=== PATIENT | male | born 1950 | race African-American/Black ===

== ENCOUNTER 2017-07-30 16:38 | Inpatient (IN) | payer MEDICARE, MEDICAID ==
[~2017-07-30] VITALS: Ht 172.7 cm; Wt 91.2 kg
[~2017-07-30 16:38] MED LIST: AMLO5TAB88 PO; COR3 PO; FURO20TA4 PO; LISI2.5T47 PO
[2017-07-30] MEDS ORDERED: ONDANSETRON HCL 4MG/2ML VIAL IV STA (17:54)
[2017-07-30] MEDS ORDERED: MORPHINE SULFATE 4 MG/ML CPJ (NOT FOR IM USE) IV STA (17:54)
[2017-07-30] MEDS ORDERED: SODIUM CHLORIDE 0.9% 1,000 ML IV ONE (17:54)
[2017-07-30 19:02] LABS: HEMATOCRIT. 44.2 % (42.0-52.0); HEMOGLOBIN. 13.7 g/dL (14.0-18.0); MEAN CORPUSCULAR HEMOGLOBIN 26.3 pg (28.0-32.0); MEAN PLATELET VOLUME 9.9 fl (7.4-10.4); PLATELET 171 x1000/uL (130-400); RED CELL DISTRIBUTION WIDTH 18.1 % (11.6-14.6)
[2017-07-30 19:09] LABS: AMMONIA 83 uMol/L (<32); INR 3.9; PROTHROMBIN TIME 40.9 sec (9.4-11.6)
[2017-07-30 19:10] LABS: CHLORIDE 102 mEq/L (98-107); ETHANOL BLOOD < 10 mg/dL
[2017-07-30 19:29] LABS: TROPONIN I 0.46 ng/mL (0.00-0.04)
[2017-07-30] MEDS ORDERED: ALBUTEROL (0.083%) 2.5MG/3ML NEB HHN ONE (19:45)
[2017-07-30] MEDS ORDERED: DEXTROSE 50% WATER 50ML SYRINGE IV ONE ×4 (19:45→21:15)
[2017-07-30] MEDS ORDERED: SODIUM BICARBONATE 8.4% 1 MEQ/ML 50ML SYR IV ONE (19:45)
[2017-07-30] MEDS ORDERED: SODIUM POLYSTYRENE SULFONATE 15 G/60 ML BOT PO ONE (19:45)
[2017-07-30] MEDS ORDERED: LACTULOSE 20G/30ML UDC PO ONE (19:45)
[2017-07-30] MEDS ORDERED: CALCIUM GLUCONATE 1,000 MG in DEXTROSE 5% WATER 50 ML IV ONE (20:00)
[2017-07-30] MEDS ORDERED: DEXTROSE 10% WATER 250 ML IV ONE (20:15)
[2017-07-30 20:23] LABS: ATYPICAL LYMPHOCYTES 1
[2017-07-30 20:24] LABS: PLATELET ESTIMATE NORMAL
[2017-07-30 20:27] LABS: CLARITY URINE TURBID (CLEAR); COLOR URINE DARK YELLOW (YELLOW); KETONES URINE NEGATIVE (NEGATIVE); LEUKOCYTE ESTERASE URINE TRACE (NEGATIVE); NITRITE URINE NEGATIVE (NEGATIVE); OCCULT BLOOD URINE 3+ (NEGATIVE); PROTEIN URINE 2+ (NEGATIVE); SPECIFIC GRAVITY URINE 1.019 (1.005-1.030)
[2017-07-30] MEDS ORDERED: CLONIDINE 0.1MG TABLET PO PRN (20:30)
[2017-07-30] MEDS ORDERED: PHYTONADIONE 10MG/ML AMP SUBCUT NR (20:30)
[2017-07-30] MEDS ORDERED: MAGNESIUM/ALUMINUM HYDROXIDE/SIMETHICONE 30ML UDC PO PRN (20:30)
[2017-07-30] MEDS ORDERED: ONDANSETRON HCL 4MG/2ML VIAL IV PRN (20:30)
[2017-07-30] MEDS ORDERED: IPRATROPIUM/ALBUTEROL 0.5-3(2.5)MG/3ML NEB INH PRN (20:30)
[2017-07-30 21:01] LABS: PHOSPHORUS 8.7 mg/dL (2.5-4.9)
[2017-07-30 23:10] LABS: CREATINE KINASE MB FRACTION 43.3 ng/mL (0.5-3.6)
[2017-07-30 23:12] LABS: TROPONIN I 0.51 ng/mL (0.00-0.04)
[2017-07-31] VITALS (78 sets, daily range): BP systolic 100–167; BP diastolic 16–115
[2017-07-31 01:45] LABS: BG BASE EXCESS -14.7 mmol/L (-2.0-2.0); BG CARBOXYHEMOGLOBIN 0.2 % (0.5-1.5); BG DEOXYHEMOGLOBIN 0.3 % (0.0-5.0); BG FRACTION INSPIRED OXYGEN 100; BG HCO3 ACT 9.3 mmol/L (22.0-26.0); BG METHEMOGLOBIN 0.7 % (0.0-1.5); BG OXYGEN SATURATION 99.7 % (92.0-98.5); BG OXYHEMOGLOBIN 98.8 % (94.0-97.0); BG PCO2 19.2 mmHg (35.0-45.0); BG PH 7.303 (7.350-7.450); BG PO2 399.8 mmHg (75.0-100.0); BG SAMPLE SITE RIGHT RADIAL; BG TOTAL HEMOGLOBIN 13.4 g/dL (12.0-18.0); BG VENT MODE MASK - NRB
[2017-07-31] MEDS ORDERED: FUROSEMIDE 40MG/4ML VIAL IVP NR (03:30)
[2017-07-31 04:45] LABS: HEMOGLOBIN. 13.1 g/dL (14.0-18.0); MEAN CORPUSCULAR HEMOGLOBIN 26.3 pg (28.0-32.0); MEAN CORPUSCULAR VOLUME 85.9 fL (80.0-94.0); MEAN PLATELET VOLUME 10.1 fl (7.4-10.4); PLATELET 171 x1000/uL (130-400); RED CELL DISTRIBUTION WIDTH 18.2 % (11.6-14.6)
[2017-07-31 05:03] LABS: CHLORIDE 100 mEq/L (98-107); CREATINE KINASE MB FRACTION 56.5 ng/mL (0.5-3.6); HDL CHOLESTEROL 32 mg/dL (40-59); INR 3.4; LDL CHOLESTEROL 99 mg/dL (5-100); PARTIAL THROMBOPLASTIN TIME 32.9 sec (23.4-31.0); PROTHROMBIN TIME 35.5 sec (9.4-11.6)
[2017-07-31 05:21] LABS: CREATINE KINASE 2281 IU/L (39-308)
[2017-07-31 06:06] LABS: TROPONIN I 0.71 ng/mL (0.00-0.04)
[2017-07-31 06:09] LABS: BG BASE EXCESS -14.8 mmol/L (-2.0-2.0); BG CARBOXYHEMOGLOBIN 0.3 % (0.5-1.5); BG DEOXYHEMOGLOBIN 3.7 % (0.0-5.0); BG HCO3 ACT 9.9 mmol/L (22.0-26.0); BG METHEMOGLOBIN 0.2 % (0.0-1.5); BG OXYGEN SATURATION 96.3 % (92.0-98.5); BG OXYHEMOGLOBIN 95.8 % (94.0-97.0); BG PCO2 21.5 mmHg (35.0-45.0); BG PH 7.279 (7.350-7.450); BG PO2 95.8 mmHg (75.0-100.0); BG SAMPLE SITE LEFT BRACHIAL; BG TOTAL HEMOGLOBIN 13.3 g/dL (12.0-18.0); BG VENT MODE NASAL CANNULA
[2017-07-31] MEDS ORDERED: DEXTROSE 50% WATER 50ML SYRINGE IV NR ×2 (06:48→10:03)
[2017-07-31 06:51] LABS: NUCLEATED RED BLOOD CELLS 2 /100 WBC
[2017-07-31 06:52] LABS: PLATELET ESTIMATE NORMAL
[2017-07-31] MEDS ORDERED: CALCIUM CHLORIDE IV NR (07:00)
[2017-07-31] MEDS ORDERED: CALCIUM CHLORIDE 2,000 MG in DEXT 5% WATER 80 ML IV NR (07:00)
[2017-07-31] MEDS ORDERED: SODIUM CHLORIDE 0.9% IV NR (07:00)
[2017-07-31] MEDS ORDERED: SODIUM BICARBONATE 8.4% 1 MEQ/ML 50ML SYR IV NR (07:00)
[2017-07-31] MEDS ORDERED: IPRATROPIUM/ALBUTEROL 0.5-3(2.5)MG/3ML NEB HHN SCH (08:00)
[2017-07-31] MEDS ORDERED: PHYTONADIONE 10MG/ML AMP SUBCUT NR (08:45)
[2017-07-31 09:16] LABS: BG BASE EXCESS -12.3 mmol/L (-2.0-2.0); BG BILEVEL POS AIRWAY PRESSURE 15/5; BG CARBOXYHEMOGLOBIN 0.3 % (0.5-1.5); BG DEOXYHEMOGLOBIN 0.8 % (0.0-5.0); BG HCO3 ACT 11.8 mmol/L (22.0-26.0); BG METHEMOGLOBIN 0.5 % (0.0-1.5); BG OXYGEN SATURATION 99.2 % (92.0-98.5); BG OXYHEMOGLOBIN 98.4 % (94.0-97.0); BG PCO2 23.3 mmHg (35.0-45.0); BG PH 7.322 (7.350-7.450); BG PO2 169.2 mmHg (75.0-100.0); BG SAMPLE SITE RIGHT RADIAL; BG TOTAL HEMOGLOBIN 13.5 g/dL (12.0-18.0); BG VENT MODE MASK - BIPAP; BG VENT RATE 14 set
[2017-07-31] MEDS: LACTULOSE 20G/30ML UDC PO SCH ×2 (09:46→18:00)
[2017-07-31] MEDS ORDERED: LORAZEPAM 2MG/ML CPJ IV NR (10:17)
[2017-07-31 10:59] LABS: *AMPHETAMINES SCREEN URINE NEGATIVE (NEGATIVE); *BARBITURATES SCREEN URINE NEGATIVE (NEGATIVE); *BENZODIAZEPINES SCREEN URINE NEGATIVE (NEGATIVE); *COCAINE SCREEN URINE PRESUMTIVE POSITIVE (NEGATIVE); CANNABINOID URINE SCREEN NEGATIVE (NEGATIVE); METHADONE URINE SCREEN NEGATIVE (NEGATIVE); OPIATES URINE SCREEN NEGATIVE (NEGATIVE); PHENCYCLIDINE URINE SCREEN NEGATIVE (NEGATIVE)
[2017-07-31] MEDS ORDERED: DEXTROSE 50% WATER 50ML SYRINGE IV PRN (11:00)
[2017-07-31] MEDS: PANTOPRAZOLE SODIUM 40 MG/VIAL IV SCH (11:03)
[2017-07-31] MEDS: BLOOD SUGAR DIAGNOSTIC STRIP TEST SCH ×3 (12:40→20:45)
[2017-07-31] MEDS: SODIUM CHLORIDE IV SCH (13:56)
[2017-07-31] MEDS: DEXTROSE 10% IV SCH (13:56)
[2017-07-31] MEDS: WATER IV SCH (13:56)
[2017-07-31] MEDS: IPRATROPIUM/ALBUTEROL 0.5-3(2.5)MG/3ML NEB HHN SCH ×2 (14:39→20:42)
[2017-07-31] MEDS ORDERED: HEPARIN SODIUM 1,000 UNIT/1ML VIAL IV NR (15:30)
[2017-07-31 17:30] LABS: BG BASE EXCESS -0.6 mmol/L (-2.0-2.0); BG BILEVEL POS AIRWAY PRESSURE 15/5; BG CARBOXYHEMOGLOBIN 0.6 % (0.5-1.5); BG DEOXYHEMOGLOBIN 4.1 % (0.0-5.0); BG METHEMOGLOBIN 0.7 % (0.0-1.5); BG OXYGEN SATURATION 95.8 % (92.0-98.5); BG OXYHEMOGLOBIN 94.6 % (94.0-97.0); BG PCO2 30.2 mmHg (35.0-45.0); BG PO2 78.8 mmHg (75.0-100.0); BG SAMPLE SITE RIGHT RADIAL; BG TOTAL HEMOGLOBIN 12.4 g/dL (12.0-18.0); BG VENT MODE MASK - BIPAP; BG VENT RATE 16 set
[2017-07-31] MEDS: CEFTRIAXONE 1,000 MG in DEXTROSE 5% WATER 50 ML IV SCH (20:05)
[2017-07-31] MEDS: CARVEDILOL 3.125 MG TABLET PO SCH (20:06)
[2017-07-31] MEDS: LACTULOSE 20G/30ML UDC PR SCH (22:56)
[2017-08-01] VITALS (88 sets, daily range): BP systolic 91–150; BP diastolic 22–116
[2017-08-01] MEDS: BLOOD SUGAR DIAGNOSTIC STRIP TEST SCH ×6 (00:55→20:52)
[2017-08-01] MEDS: LACTULOSE 20G/30ML UDC PO SCH ×3 (01:48→17:32)
[2017-08-01] MEDS: IPRATROPIUM/ALBUTEROL 0.5-3(2.5)MG/3ML NEB HHN SCH ×4 (02:05→20:22)
[2017-08-01 04:14] LABS: HEMATOCRIT. 35.8 % (42.0-52.0); HEMOGLOBIN. 11.6 g/dL (14.0-18.0); MEAN CORPUSCULAR HEMOGLOBIN 26.6 pg (28.0-32.0); MEAN CORPUSCULAR VOLUME 81.8 fL (80.0-94.0); MEAN PLATELET VOLUME 9.6 fl (7.4-10.4); PLATELET 126 x1000/uL (130-400); RED BLOOD CELL COUNT 4.37 mill/uL (4.7-6.1); RED CELL DISTRIBUTION WIDTH 17.7 % (11.6-14.6)
[2017-08-01 04:25] LABS: AMMONIA 46 uMol/L (<32); PROTHROMBIN TIME 31.3 sec (9.4-11.6)
[2017-08-01] MEDS: LACTULOSE 20G/30ML UDC PR SCH (06:12)
[2017-08-01 07:14] LABS: NUCLEATED RED BLOOD CELLS 2 /100 WBC; PLATELET ESTIMATE SLIGHTLY DECREASED
[2017-08-01 07:14] LABS: BG BASE EXCESS 1.3 mmol/L (-2.0-2.0); BG BILEVEL POS AIRWAY PRESSURE 15/5; BG CARBOXYHEMOGLOBIN 0.5 % (0.5-1.5); BG DEOXYHEMOGLOBIN 0.9 % (0.0-5.0); BG HCO3 ACT 25.7 mmol/L (22.0-26.0); BG METHEMOGLOBIN 0.2 % (0.0-1.5); BG OXYGEN SATURATION 99.1 % (92.0-98.5); BG OXYHEMOGLOBIN 98.4 % (94.0-97.0); BG PCO2 40.2 mmHg (35.0-45.0); BG PH 7.424 (7.350-7.450); BG PO2 166.6 mmHg (75.0-100.0); BG SAMPLE SITE RIGHT RADIAL; BG VENT MODE MASK - BIPAP; BG VENT RATE 16 set
[2017-08-01] MEDS: WATER IV SCH (08:32)
[2017-08-01] MEDS: SODIUM CHLORIDE IV SCH (08:32)
[2017-08-01] MEDS: PANTOPRAZOLE SODIUM 40 MG/VIAL IV SCH (08:32)
[2017-08-01] MEDS: DEXTROSE 10% IV SCH (08:32)
[2017-08-01] MEDS: CARVEDILOL 3.125 MG TABLET PO SCH ×2 (09:00→20:56)
[2017-08-01 10:08] LABS: PHOSPHORUS 4.9 mg/dL (2.5-4.9)
[2017-08-01 12:15] LABS: HEPATITIS B SURFACE ANTIGEN NEGATIVE
[2017-08-01] MEDS: SODIUM CHLORIDE 23.4% 154 MEQ in DEXT 10% WATER 1,000 ML IV SCH (20:56)
[2017-08-01] MEDS: CEFTRIAXONE 1,000 MG in DEXTROSE 5% WATER 50 ML IV SCH (20:56)
[2017-08-02] VITALS (69 sets, daily range): BP systolic 42–152; BP diastolic 18–100
[2017-08-02] MEDS: BLOOD SUGAR DIAGNOSTIC STRIP TEST SCH ×6 (00:10→20:00)
[2017-08-02] MEDS: IPRATROPIUM/ALBUTEROL 0.5-3(2.5)MG/3ML NEB HHN SCH ×5 (01:26→20:42)
[2017-08-02] MEDS: LACTULOSE 20G/30ML UDC PO SCH ×3 (01:44→18:40)
[2017-08-02 05:29] LABS: HEMATOCRIT. 39.3 % (42.0-52.0); HEMOGLOBIN. 12.3 g/dL (14.0-18.0); MEAN CORPUSCULAR VOLUME 82.9 fL (80.0-94.0); MEAN PLATELET VOLUME 10.1 fl (7.4-10.4); PLATELET 115 x1000/uL (130-400); RED BLOOD CELL COUNT 4.75 mill/uL (4.7-6.1); RED CELL DISTRIBUTION WIDTH 17.9 % (11.6-14.6)
[2017-08-02 05:34] LABS: INR 2.3
[2017-08-02 05:47] LABS: AMMONIA 44 uMol/L (<32)
[2017-08-02 07:03] LABS: NUCLEATED RED BLOOD CELLS 2 /100 WBC; PLATELET ESTIMATE DECREASED
[2017-08-02] MEDS ORDERED: PHYTONADIONE 10MG/ML AMP SUBCUT NR (07:45)
[2017-08-02 08:21] LABS: BG BASE EXCESS 1.1 mmol/L (-2.0-2.0); BG DEOXYHEMOGLOBIN 4.9 % (0.0-5.0); BG FRACTION INSPIRED OXYGEN 21; BG HCO3 ACT 22.6 mmol/L (22.0-26.0); BG METHEMOGLOBIN 0.2 % (0.0-1.5); BG OXYHEMOGLOBIN 93.9 % (94.0-97.0); BG PCO2 27.4 mmHg (35.0-45.0); BG PH 7.534 (7.350-7.450); BG PO2 67.7 mmHg (75.0-100.0); BG SAMPLE SITE RIGHT RADIAL; BG TOTAL HEMOGLOBIN 13.1 g/dL (12.0-18.0); BG VENT MODE ROOM AIR
[2017-08-02] MEDS: PANTOPRAZOLE SODIUM 40 MG/VIAL IV SCH (08:53)
[2017-08-02] MEDS: CARVEDILOL 3.125 MG TABLET PO SCH ×2 (08:53→21:00)
[2017-08-02] MEDS: HALOPERIDOL LACTATE 5MG/ML VIAL IM PRN ×2 (11:29→15:56)
[2017-08-02] MEDS: CEFTRIAXONE 1 G PREMIX 50 ML IV SCH (20:54)
[2017-08-02 23:27] LABS: INR 1.8; PARTIAL THROMBOPLASTIN TIME 30.7 sec (23.4-31.0); PROTHROMBIN TIME 18.7 sec (9.4-11.6)
[2017-08-03] VITALS (47 sets, daily range): BP systolic 93–136; BP diastolic 61–103
[2017-08-03] MEDS: LACTULOSE 20G/30ML UDC PO SCH ×3 (02:00→17:46)
[2017-08-03] MEDS: IPRATROPIUM/ALBUTEROL 0.5-3(2.5)MG/3ML NEB HHN SCH ×4 (03:43→20:04)
[2017-08-03] MEDS: BLOOD SUGAR DIAGNOSTIC STRIP TEST SCH ×6 (04:11→20:58)
[2017-08-03] MEDS: HALOPERIDOL LACTATE 5MG/ML VIAL IM PRN ×3 (06:03→23:30)
[2017-08-03] MEDS: SODIUM CHLORIDE 23.4% 154 MEQ in DEXT 10% WATER 1,000 ML IV SCH (06:04)
[2017-08-03] MEDS: PANTOPRAZOLE SODIUM 40 MG/VIAL IV SCH (08:55)
[2017-08-03] MEDS: CARVEDILOL 3.125 MG TABLET PO SCH (08:55)
[2017-08-03 09:33] LABS: HEMATOCRIT. 39.7 % (42.0-52.0); HEMOGLOBIN. 12.6 g/dL (14.0-18.0); MEAN CORPUSCULAR HEMOGLOBIN 26.1 pg (28.0-32.0); MEAN CORPUSCULAR VOLUME 82.3 fL (80.0-94.0); MEAN PLATELET VOLUME 10.3 fl (7.4-10.4); PLATELET 106 x1000/uL (130-400); RED BLOOD CELL COUNT 4.82 mill/uL (4.7-6.1); RED CELL DISTRIBUTION WIDTH 18.1 % (11.6-14.6)
[2017-08-03] MEDS ORDERED: SODIUM BICARBONATE 4% (2.4MEQ) 5ML VIAL IV ONE (09:38)
[2017-08-03] MEDS ORDERED: LIDOCAINE HCL 1% 20ML VIAL (Pyxis) INJ ONE (09:39)
[2017-08-03 09:51] LABS: CHLORIDE 108 mEq/L (98-107)
[2017-08-03 10:25] LABS: NUCLEATED RED BLOOD CELLS 1 /100 WBC
[2017-08-03 10:26] LABS: PLATELET ESTIMATE SLIGHTLY DECREASED
[2017-08-03 19:54] LABS: BG CARBOXYHEMOGLOBIN 0.9 % (0.5-1.5); BG DEOXYHEMOGLOBIN 0.3 % (0.0-5.0); BG FRACTION INSPIRED OXYGEN 100; BG METHEMOGLOBIN 0.4 % (0.0-1.5); BG OXYGEN SATURATION 99.7 % (92.0-98.5); BG OXYHEMOGLOBIN 98.4 % (94.0-97.0); BG PCO2 39.3 mmHg (35.0-45.0); BG PH 7.455 (7.350-7.450); BG PO2 423.5 mmHg (75.0-100.0); BG SAMPLE SITE RIGHT RADIAL; BG TOTAL HEMOGLOBIN 13.4 g/dL (12.0-18.0); BG VENT MODE MASK - NRB
[2017-08-03] MEDS: CARVEDILOL 6.25 MG TABLET PO SCH (21:00)
[2017-08-03] MEDS: CEFTRIAXONE 1 G PREMIX 50 ML IV SCH (21:00)
[2017-08-04] VITALS (48 sets, daily range): BP systolic 68–152; BP diastolic 24–93
[2017-08-04] MEDS: LACTULOSE 20G/30ML UDC PO SCH ×3 (02:00→18:21)
[2017-08-04] MEDS: BLOOD SUGAR DIAGNOSTIC STRIP TEST SCH ×6 (04:00→20:46)
[2017-08-04 05:46] LABS: HEMATOCRIT. 42.8 % (42.0-52.0); HEMOGLOBIN. 13.6 g/dL (14.0-18.0); MEAN CORPUSCULAR HEMOGLOBIN 26.4 pg (28.0-32.0); MEAN CORPUSCULAR VOLUME 83.1 fL (80.0-94.0); MEAN PLATELET VOLUME 10.8 fl (7.4-10.4); PLATELET 111 x1000/uL (130-400); RED BLOOD CELL COUNT 5.15 mill/uL (4.7-6.1); RED CELL DISTRIBUTION WIDTH 18.6 % (11.6-14.6)
[2017-08-04 06:15] LABS: CHLORIDE 110 mEq/L (98-107)
[2017-08-04 06:27] LABS: CREATINE KINASE 1083 IU/L (39-308)
[2017-08-04 06:41] LABS: AMMONIA 47 uMol/L (<32)
[2017-08-04] MEDS ORDERED: SODIUM POLYSTYRENE SULFONATE 15 G/60 ML BOT PO SCH (07:15)
[2017-08-04 07:28] LABS: NUCLEATED RED BLOOD CELLS 2 /100 WBC; PLATELET ESTIMATE DECREASED
[2017-08-04] MEDS: IPRATROPIUM/ALBUTEROL 0.5-3(2.5)MG/3ML NEB HHN SCH ×3 (07:54→19:58)
[2017-08-04] MEDS: PANTOPRAZOLE SODIUM 40 MG/VIAL IV SCH (08:18)
[2017-08-04] MEDS: CARVEDILOL 6.25 MG TABLET PO SCH ×2 (08:19→20:46)
[2017-08-04] MEDS: CEFTRIAXONE 1 G PREMIX 50 ML IV SCH (20:00)
[2017-08-04] MEDS: SODIUM CHLORIDE 23.4% 154 MEQ in DEXT 10% WATER 1,000 ML IV SCH (20:46)
[2017-08-05] VITALS (32 sets, daily range): BP systolic 98–151; BP diastolic 19–89
[2017-08-05] MEDS: BLOOD SUGAR DIAGNOSTIC STRIP TEST SCH ×4 (00:02→18:22)
[2017-08-05] MEDS: HALOPERIDOL LACTATE 5MG/ML VIAL IM PRN (00:02)
[2017-08-05] MEDS: IPRATROPIUM/ALBUTEROL 0.5-3(2.5)MG/3ML NEB HHN SCH ×4 (01:38→21:14)
[2017-08-05] MEDS: LACTULOSE 20G/30ML UDC PO SCH ×3 (02:00→18:00)
[2017-08-05 05:40] LABS: HEMATOCRIT. 38.9 % (42.0-52.0); HEMOGLOBIN. 12.3 g/dL (14.0-18.0); MEAN CORPUSCULAR HEMOGLOBIN 26.1 pg (28.0-32.0); MEAN CORPUSCULAR VOLUME 82.8 fL (80.0-94.0); MEAN PLATELET VOLUME 10.3 fl (7.4-10.4); PLATELET 99 x1000/uL (130-400); RED CELL DISTRIBUTION WIDTH 18.8 % (11.6-14.6)
[2017-08-05 05:47] LABS: AMMONIA 43 uMol/L (<32)
[2017-08-05 06:03] LABS: CHLORIDE 107 mEq/L (98-107)
[2017-08-05 06:11] LABS: CREATINE KINASE 356 IU/L (39-308); PHOSPHORUS 2.2 mg/dL (2.5-4.9)
[2017-08-05 06:46] LABS: PLATELET ESTIMATE DECREASED
[2017-08-05] MEDS: CARVEDILOL 6.25 MG TABLET PO SCH ×2 (08:38→21:00)
[2017-08-05] MEDS: PANTOPRAZOLE SODIUM 40 MG/VIAL IV SCH (09:00)
[2017-08-05] MEDS: CEFTRIAXONE 1 G PREMIX 50 ML IV SCH (21:13)
[2017-08-06] VITALS (12 sets, daily range): BP systolic 91–119; BP diastolic 62–90
[2017-08-06] MEDS: LACTULOSE 20G/30ML UDC PO SCH ×3 (01:47→18:36)
[2017-08-06] MEDS: IPRATROPIUM/ALBUTEROL 0.5-3(2.5)MG/3ML NEB HHN SCH ×4 (02:38→21:59)
[2017-08-06] MEDS: BLOOD SUGAR DIAGNOSTIC STRIP TEST SCH ×5 (05:07→23:52)
[2017-08-06 05:38] LABS: AMMONIA 57 uMol/L (<32)
[2017-08-06 06:04] LABS: HEMATOCRIT. 38.5 % (42.0-52.0); HEMOGLOBIN. 12.3 g/dL (14.0-18.0); MEAN CORPUSCULAR HEMOGLOBIN 26.4 pg (28.0-32.0); MEAN CORPUSCULAR VOLUME 82.7 fL (80.0-94.0); MEAN PLATELET VOLUME 10.8 fl (7.4-10.4); PLATELET 93 x1000/uL (130-400); RED BLOOD CELL COUNT 4.66 mill/uL (4.7-6.1); RED CELL DISTRIBUTION WIDTH 18.5 % (11.6-14.6)
[2017-08-06 08:28] LABS: CHLORIDE 104 mEq/L (98-107); CREATINE KINASE 249 IU/L (39-308)
[2017-08-06 08:29] LABS: PHOSPHORUS 2.1 mg/dL (2.5-4.9)
[2017-08-06] MEDS: PANTOPRAZOLE SODIUM 40 MG/VIAL IV SCH (09:39)
[2017-08-06] MEDS: CARVEDILOL 6.25 MG TABLET PO SCH ×2 (09:40→21:27)
[2017-08-06] MEDS ORDERED: POTASSIUM PHOS,M-BASIC-D-BASIC 15 MMOL in DEXT 5% WATER 245 ML IV NR (10:00)
[2017-08-06 10:29] LABS: PLATELET ESTIMATE DECREASED
[2017-08-06] MEDS ORDERED: LISINOPRIL 2.5MG TABLET PO SCH (15:00)
[2017-08-06] MEDS: CEFTRIAXONE 1 G PREMIX 50 ML IV SCH (21:27)
[2017-08-07] VITALS (12 sets, daily range): BP systolic 89–145; BP diastolic 58–99
[2017-08-07] MEDS: IPRATROPIUM/ALBUTEROL 0.5-3(2.5)MG/3ML NEB HHN SCH ×4 (01:50→20:19)
[2017-08-07] MEDS: LACTULOSE 20G/30ML UDC PO SCH ×3 (02:31→18:45)
[2017-08-07] MEDS: BLOOD SUGAR DIAGNOSTIC STRIP TEST SCH ×3 (06:00→18:45)
[2017-08-07 06:32] LABS: HEMATOCRIT. 39.4 % (42.0-52.0); HEMOGLOBIN. 12.5 g/dL (14.0-18.0); MEAN CORPUSCULAR HEMOGLOBIN 26.3 pg (28.0-32.0); MEAN CORPUSCULAR VOLUME 82.9 fL (80.0-94.0); RED BLOOD CELL COUNT 4.76 mill/uL (4.7-6.1); RED CELL DISTRIBUTION WIDTH 19.4 % (11.6-14.6)
[2017-08-07 07:22] LABS: AMMONIA 88 uMol/L (<32)
[2017-08-07 07:56] LABS: CHLORIDE 100 mEq/L (98-107); PHOSPHORUS 2.4 mg/dL (2.5-4.9)
[2017-08-07] MEDS ORDERED: DEXTROSE 50% WATER 50ML SYRINGE IV NR (08:11)
[2017-08-07] MEDS ORDERED: INSULIN REGULAR (HUMULIN R) UD 100 UNITS/ML SYR IV NR (08:15)
[2017-08-07] MEDS ORDERED: SODIUM POLYSTYRENE SULFONATE 15 G/60 ML BOT PO NR (08:15)
[2017-08-07] MEDS ORDERED: SODIUM BICARBONATE 8.4% 1 MEQ/ML 50ML SYR IV NR (08:15)
[2017-08-07] MEDS: CARVEDILOL 6.25 MG TABLET PO SCH ×2 (09:00→21:00)
[2017-08-07] MEDS: PANTOPRAZOLE SODIUM 40 MG/VIAL IV SCH (09:07)
[2017-08-07] MEDS ORDERED: SODIUM PHOS,M-BASIC-D-BASIC 15 MM in DEXT 5% WATER 245 ML IV NR (10:00)
[2017-08-07 11:12] LABS: PLATELET ESTIMATE DECREASED
[2017-08-07 11:14] LABS: MEAN PLATELET VOLUME 11.3 fl (7.4-10.4); PLATELET 109 x1000/uL (130-400)
[2017-08-07] MEDS ORDERED: POTASSIUM CHLORIDE 20MEQ TABLET SR PO NR (14:15)
[2017-08-07] MEDS: CEFTRIAXONE 1 G PREMIX 50 ML IV SCH (21:23)
[2017-08-08] VITALS (12 sets, daily range): BP systolic 107–139; BP diastolic 59–84
[2017-08-08] MEDS: LACTULOSE 20G/30ML UDC PO SCH ×5 (00:11→23:30)
[2017-08-08] MEDS: BLOOD SUGAR DIAGNOSTIC STRIP TEST SCH ×5 (00:11→23:30)
[2017-08-08] MEDS: IPRATROPIUM/ALBUTEROL 0.5-3(2.5)MG/3ML NEB HHN SCH ×4 (01:24→21:11)
[2017-08-08 06:38] LABS: HEMATOCRIT. 38.5 % (42.0-52.0); HEMOGLOBIN. 12.4 g/dL (14.0-18.0); MEAN CORPUSCULAR HEMOGLOBIN 26.3 pg (28.0-32.0); MEAN CORPUSCULAR VOLUME 81.7 fL (80.0-94.0); RED CELL DISTRIBUTION WIDTH 18.9 % (11.6-14.6)
[2017-08-08 06:44] LABS: CHLORIDE 101 mEq/L (98-107); PHOSPHORUS 1.9 mg/dL (2.5-4.9)
[2017-08-08] MEDS: PANTOPRAZOLE SODIUM 40 MG/VIAL IV SCH (07:59)
[2017-08-08] MEDS: CARVEDILOL 6.25 MG TABLET PO SCH ×2 (08:01→20:38)
[2017-08-08] MEDS ORDERED: SODIUM PHOS,M-BASIC-D-BASIC 15 MM in DEXT 5% WATER 245 ML IV NR (10:00)
[2017-08-08 10:57] LABS: PLATELET ESTIMATE SLIGHTLY DECREASED
[2017-08-08 10:58] LABS: MEAN PLATELET VOLUME 10.6 fl (7.4-10.4); PLATELET 125 x1000/uL (130-400)
[2017-08-08] MEDS ORDERED: DEXTROSE 50% WATER 50ML SYRINGE IV PRN (12:30)
[2017-08-08] MEDS: INSULIN LISPRO 100 UNITS/ML SUBCUT SCH ×3 (13:26→23:36)
[2017-08-09] VITALS (11 sets, daily range): BP systolic 100–138; BP diastolic 59–92
[2017-08-09] MEDS: IPRATROPIUM/ALBUTEROL 0.5-3(2.5)MG/3ML NEB HHN SCH ×4 (00:39→21:31)
[2017-08-09] MEDS: HALOPERIDOL LACTATE 5MG/ML VIAL IM PRN ×2 (01:36→11:16)
[2017-08-09] MEDS: LACTULOSE 20G/30ML UDC PO SCH ×3 (05:54→21:24)
[2017-08-09] MEDS: INSULIN LISPRO 100 UNITS/ML SUBCUT SCH ×4 (06:00→23:46)
[2017-08-09] MEDS: BLOOD SUGAR DIAGNOSTIC STRIP TEST SCH ×4 (06:00→23:34)
[2017-08-09 07:10] LABS: HEMATOCRIT. 37.3 % (42.0-52.0); MEAN CORPUSCULAR HEMOGLOBIN 26.2 pg (28.0-32.0); MEAN CORPUSCULAR VOLUME 81.4 fL (80.0-94.0); MEAN PLATELET VOLUME 10.7 fl (7.4-10.4); PLATELET 137 x1000/uL (130-400); RED BLOOD CELL COUNT 4.58 mill/uL (4.7-6.1); RED CELL DISTRIBUTION WIDTH 18.9 % (11.6-14.6)
[2017-08-09 07:20] LABS: CHLORIDE 100 mEq/L (98-107); PHOSPHORUS 2.5 mg/dL (2.5-4.9)
[2017-08-09] MEDS: PANTOPRAZOLE SODIUM 40 MG/VIAL IV SCH (08:24)
[2017-08-09] MEDS: CARVEDILOL 6.25 MG TABLET PO SCH (08:32)
[2017-08-09 13:22] LABS: PLATELET ESTIMATE NORMAL
[2017-08-09 13:43] LABS: AMMONIA 39 uMol/L (<32)
[2017-08-09] MEDS: CARVEDILOL 12.5MG TABLET PO SCH (21:21)
[2017-08-10] VITALS (10 sets, daily range): BP systolic 107–131; BP diastolic 25–103
[2017-08-10] MEDS: IPRATROPIUM/ALBUTEROL 0.5-3(2.5)MG/3ML NEB HHN SCH ×4 (02:34→21:05)
[2017-08-10] MEDS: INSULIN LISPRO 100 UNITS/ML SUBCUT SCH ×3 (06:00→18:00)
[2017-08-10] MEDS: LACTULOSE 20G/30ML UDC PO SCH ×3 (06:03→21:15)
[2017-08-10] MEDS: BLOOD SUGAR DIAGNOSTIC STRIP TEST SCH ×3 (06:06→18:15)
[2017-08-10] MEDS: CARVEDILOL 12.5MG TABLET PO SCH ×3 (09:00→21:15)
[2017-08-10 12:57] LABS: AMMONIA 32 uMol/L (<32)
[2017-08-10] MEDS: PANTOPRAZOLE SODIUM 40 MG/VIAL IV SCH (13:14)
[2017-08-10 15:05] LABS: INR 1.2; PROTHROMBIN TIME 12.7 sec (9.4-11.6)
[2017-08-11] VITALS (12 sets, daily range): BP systolic 95–129; BP diastolic 47–80
[2017-08-11] MEDS: INSULIN LISPRO 100 UNITS/ML SUBCUT SCH ×5 (00:12→21:12)
[2017-08-11] MEDS: BLOOD SUGAR DIAGNOSTIC STRIP TEST SCH ×5 (00:12→21:12)
[2017-08-11] MEDS: IPRATROPIUM/ALBUTEROL 0.5-3(2.5)MG/3ML NEB HHN SCH ×4 (02:00→20:48)
[2017-08-11] MEDS: LACTULOSE 20G/30ML UDC PO SCH ×3 (06:13→21:52)
[2017-08-11 06:37] LABS: HEMATOCRIT. 35.7 % (42.0-52.0); HEMOGLOBIN. 11.5 g/dL (14.0-18.0); MEAN CORPUSCULAR HEMOGLOBIN 26.1 pg (28.0-32.0); MEAN CORPUSCULAR VOLUME 81.5 fL (80.0-94.0); MEAN PLATELET VOLUME 10.5 fl (7.4-10.4); PLATELET 128 x1000/uL (130-400); RED BLOOD CELL COUNT 4.39 mill/uL (4.7-6.1)
[2017-08-11 06:42] LABS: INR 1.3; PARTIAL THROMBOPLASTIN TIME 27.7 sec (23.4-31.0); PROTHROMBIN TIME 13.1 sec (9.4-11.6)
[2017-08-11 06:59] LABS: CHLORIDE 101 mEq/L (98-107)
[2017-08-11 07:05] LABS: AMMONIA 33 uMol/L (<32)
[2017-08-11] MEDS: PANTOPRAZOLE SODIUM 40 MG/VIAL IV SCH (08:15)
[2017-08-11] MEDS: CARVEDILOL 12.5MG TABLET PO SCH ×2 (08:16→21:11)
[2017-08-11] MEDS ORDERED: SODIUM BICARBONATE 4% (2.4MEQ) 5ML VIAL IV ONE (08:29)
[2017-08-11] MEDS ORDERED: LIDOCAINE HCL 1% 20ML VIAL (Pyxis) INJ ONE (08:30)
[2017-08-11] MEDS: FUROSEMIDE 40MG/4ML VIAL IVP SCH (15:09)
[2017-08-11 17:20] LABS: PLATELET ESTIMATE SLIGHTLY DECREASED
[2017-08-12] VITALS (34 sets, daily range): BP systolic 90–133; BP diastolic 32–92
[2017-08-12] MEDS: IPRATROPIUM/ALBUTEROL 0.5-3(2.5)MG/3ML NEB HHN SCH ×4 (01:23→20:34)
[2017-08-12] MEDS: HALOPERIDOL LACTATE 5MG/ML VIAL IM PRN (01:57)
[2017-08-12] MEDS: LACTULOSE 20G/30ML UDC PO SCH ×3 (05:42→21:40)
[2017-08-12 06:12] LABS: BASOPHILS % 0.8 % (0.0-2.0); EOSINOPHILS % 0.2 % (0.0-5.0); HEMATOCRIT. 37.6 % (42.0-52.0); HEMOGLOBIN. 12.1 g/dL (14.0-18.0); LYMPHOCYTES % 9.6 % (20.0-50.0); MEAN CORPUSCULAR HEMOGLOBIN 26.3 pg (28.0-32.0); MEAN CORPUSCULAR VOLUME 81.9 fL (80.0-94.0); MEAN PLATELET VOLUME 10.6 fl (7.4-10.4); MONOCYTES % 13.6 % (2.0-8.0); NEUTROPHILS % 75.8 % (40.0-76.0); PLATELET 152 x1000/uL (130-400); RED CELL DISTRIBUTION WIDTH 19.5 % (11.6-14.6)
[2017-08-12 06:56] LABS: CHLORIDE 100 mEq/L (98-107)
[2017-08-12] MEDS: INSULIN LISPRO 100 UNITS/ML SUBCUT SCH ×4 (07:30→20:53)
[2017-08-12] MEDS: BLOOD SUGAR DIAGNOSTIC STRIP TEST SCH ×4 (07:44→20:53)
[2017-08-12] MEDS: CARVEDILOL 12.5MG TABLET PO SCH ×2 (09:16→20:53)
[2017-08-12] MEDS: FUROSEMIDE 40MG/4ML VIAL IVP SCH (09:17)
[2017-08-12] MEDS: PANTOPRAZOLE SODIUM 40 MG/VIAL IV SCH (09:17)
[2017-08-12 11:16] LABS: BG BASE EXCESS 0.9 mmol/L (-2.0-2.0); BG CARBOXYHEMOGLOBIN 0.5 % (0.5-1.5); BG DEOXYHEMOGLOBIN 2.9 % (0.0-5.0); BG HCO3 ACT 22.9 mmol/L (22.0-26.0); BG METHEMOGLOBIN 0.2 % (0.0-1.5); BG OXYGEN SATURATION 97.1 % (92.0-98.5); BG OXYHEMOGLOBIN 96.4 % (94.0-97.0); BG PCO2 28.9 mmHg (35.0-45.0); BG PH 7.516 (7.350-7.450); BG PO2 84.5 mmHg (75.0-100.0); BG SAMPLE SITE RIGHT BRACHIAL; BG TOTAL HEMOGLOBIN 12.8 g/dL (12.0-18.0); BG VENT MODE NASAL CANNULA
[2017-08-12 11:50] LABS: AMMONIA < 25 uMol/L (<32)
[2017-08-13] VITALS (12 sets, daily range): BP systolic 93–144; BP diastolic 68–82
[2017-08-13] MEDS: IPRATROPIUM/ALBUTEROL 0.5-3(2.5)MG/3ML NEB HHN SCH ×3 (01:42→21:09)
[2017-08-13 06:03] LABS: HEMATOCRIT. 34.5 % (42.0-52.0); HEMOGLOBIN. 11.1 g/dL (14.0-18.0); MEAN CORPUSCULAR HEMOGLOBIN 26.6 pg (28.0-32.0); MEAN CORPUSCULAR VOLUME 82.8 fL (80.0-94.0); MEAN PLATELET VOLUME 10.4 fl (7.4-10.4); PLATELET 117 x1000/uL (130-400); RED BLOOD CELL COUNT 4.16 mill/uL (4.7-6.1); RED CELL DISTRIBUTION WIDTH 19.4 % (11.6-14.6)
[2017-08-13 06:24] LABS: CHLORIDE 105 mEq/L (98-107)
[2017-08-13] MEDS: LACTULOSE 20G/30ML UDC PO SCH ×2 (06:33→16:21)
[2017-08-13] MEDS: INSULIN LISPRO 100 UNITS/ML SUBCUT SCH ×4 (07:30→20:51)
[2017-08-13] MEDS: BLOOD SUGAR DIAGNOSTIC STRIP TEST SCH ×4 (08:16→20:51)
[2017-08-13] MEDS: FUROSEMIDE 40MG/4ML VIAL IVP SCH (08:43)
[2017-08-13] MEDS: PANTOPRAZOLE SODIUM 40 MG/VIAL IV SCH (08:44)
[2017-08-13] MEDS: CARVEDILOL 12.5MG TABLET PO SCH ×2 (08:44→20:51)
[2017-08-13 13:34] LABS: PLATELET ESTIMATE SLIGHTLY DECREASED
[2017-08-14] VITALS (12 sets, daily range): BP systolic 96–108; BP diastolic 63–81
[2017-08-14] MEDS: IPRATROPIUM/ALBUTEROL 0.5-3(2.5)MG/3ML NEB HHN SCH ×4 (01:39→20:03)
[2017-08-14 06:48] LABS: BASOPHILS % 1.5 % (0.0-2.0); EOSINOPHILS % 0.5 % (0.0-5.0); HEMATOCRIT. 33.5 % (42.0-52.0); LYMPHOCYTES % 12.3 % (20.0-50.0); MEAN CORPUSCULAR HEMOGLOBIN 26.8 pg (28.0-32.0); MEAN CORPUSCULAR VOLUME 81.8 fL (80.0-94.0); MEAN PLATELET VOLUME 9.8 fl (7.4-10.4); MONOCYTES % 14.9 % (2.0-8.0); NEUTROPHILS % 70.8 % (40.0-76.0); PLATELET 129 x1000/uL (130-400); RED CELL DISTRIBUTION WIDTH 19.2 % (11.6-14.6)
[2017-08-14] MEDS: INSULIN LISPRO 100 UNITS/ML SUBCUT SCH ×4 (07:30→21:00)
[2017-08-14] MEDS: BLOOD SUGAR DIAGNOSTIC STRIP TEST SCH ×4 (07:31→20:59)
[2017-08-14 07:49] LABS: CHLORIDE 100 mEq/L (98-107)
[2017-08-14] MEDS: CARVEDILOL 12.5MG TABLET PO SCH ×2 (08:04→20:59)
[2017-08-14] MEDS: LACTULOSE 20G/30ML UDC PO SCH ×2 (09:00→16:08)
[2017-08-14] MEDS: FUROSEMIDE 40MG/4ML VIAL IVP SCH ×2 (09:00→16:09)
[2017-08-14] MEDS: PANTOPRAZOLE SODIUM 40 MG/VIAL IV SCH ×2 (09:00→16:09)
[2017-08-15] VITALS (12 sets, daily range): BP systolic 39–116; BP diastolic 21–81
[2017-08-15] MEDS: IPRATROPIUM/ALBUTEROL 0.5-3(2.5)MG/3ML NEB HHN SCH ×4 (00:43→21:00)
[2017-08-15] MEDS: INSULIN LISPRO 100 UNITS/ML SUBCUT SCH ×4 (07:30→21:00)
[2017-08-15] MEDS: BLOOD SUGAR DIAGNOSTIC STRIP TEST SCH ×4 (07:41→21:00)
[2017-08-15] MEDS: LACTULOSE 20G/30ML UDC PO SCH ×2 (09:00→17:17)
[2017-08-15] MEDS: CARVEDILOL 12.5MG TABLET PO SCH ×2 (09:00→21:00)
[2017-08-15] MEDS: FUROSEMIDE 40MG/4ML VIAL IVP SCH (09:34)
[2017-08-15] MEDS: PANTOPRAZOLE SODIUM 40 MG/VIAL IV SCH (09:34)
[2017-08-15] MEDS: HALOPERIDOL LACTATE 5MG/ML VIAL IM PRN (23:41)
[2017-08-16] VITALS (12 sets, daily range): BP systolic 102–128; BP diastolic 65–88
[2017-08-16] MEDS: IPRATROPIUM/ALBUTEROL 0.5-3(2.5)MG/3ML NEB HHN SCH ×4 (02:10→20:51)
[2017-08-16 07:11] LABS: HEMATOCRIT. 30.4 % (42.0-52.0); HEMOGLOBIN. 9.8 g/dL (14.0-18.0); MEAN CORPUSCULAR HEMOGLOBIN 26.1 pg (28.0-32.0); MEAN CORPUSCULAR VOLUME 80.4 fL (80.0-94.0); MEAN PLATELET VOLUME 9.3 fl (7.4-10.4); PLATELET 136 x1000/uL (130-400); RED BLOOD CELL COUNT 3.78 mill/uL (4.7-6.1); RED CELL DISTRIBUTION WIDTH 18.5 % (11.6-14.6)
[2017-08-16] MEDS: INSULIN LISPRO 100 UNITS/ML SUBCUT SCH ×4 (07:30→21:36)
[2017-08-16] MEDS: BLOOD SUGAR DIAGNOSTIC STRIP TEST SCH ×4 (07:46→21:34)
[2017-08-16] MEDS: FUROSEMIDE 40MG/4ML VIAL IVP SCH (08:11)
[2017-08-16] MEDS: PANTOPRAZOLE SODIUM 40 MG/VIAL IV SCH (08:11)
[2017-08-16] MEDS: LACTULOSE 20G/30ML UDC PO SCH ×2 (08:11→17:50)
[2017-08-16] MEDS: CARVEDILOL 12.5MG TABLET PO SCH ×2 (08:12→21:00)
[2017-08-16 08:25] LABS: CHLORIDE 101 mEq/L (98-107); CREATINE KINASE 78 IU/L (39-308)
[2017-08-16 08:28] LABS: AMMONIA 45 uMol/L (<32)
[2017-08-16 10:33] LABS: PLATELET ESTIMATE NORMAL
[2017-08-16] MEDS: HALOPERIDOL LACTATE 5MG/ML VIAL IM PRN (21:35)
[2017-08-17] VITALS (10 sets, daily range): BP systolic 94–131; BP diastolic 61–79
[2017-08-17] MEDS: IPRATROPIUM/ALBUTEROL 0.5-3(2.5)MG/3ML NEB HHN SCH ×4 (04:42→20:25)
[2017-08-17] MEDS: INSULIN LISPRO 100 UNITS/ML SUBCUT SCH ×3 (07:30→17:20)
[2017-08-17 07:42] LABS: HEMATOCRIT. 32.9 % (42.0-52.0); HEMOGLOBIN. 10.8 g/dL (14.0-18.0); MEAN CORPUSCULAR HEMOGLOBIN 26.6 pg (28.0-32.0); MEAN CORPUSCULAR VOLUME 81.1 fL (80.0-94.0); MEAN PLATELET VOLUME 9.6 fl (7.4-10.4); PLATELET 131 x1000/uL (130-400); RED BLOOD CELL COUNT 4.05 mill/uL (4.7-6.1); RED CELL DISTRIBUTION WIDTH 19.4 % (11.6-14.6)
[2017-08-17 07:48] LABS: CHLORIDE 101 mEq/L (98-107)
[2017-08-17] MEDS: BLOOD SUGAR DIAGNOSTIC STRIP TEST SCH ×3 (08:16→18:14)
[2017-08-17] MEDS: PANTOPRAZOLE SODIUM 40 MG/VIAL IV SCH (09:32)
[2017-08-17] MEDS: FUROSEMIDE 40MG/4ML VIAL IVP SCH (09:32)
[2017-08-17] MEDS: LACTULOSE 20G/30ML UDC PO SCH ×2 (09:33→17:04)
[2017-08-17] MEDS: CARVEDILOL 12.5MG TABLET PO SCH (09:44)
[2017-08-17] MEDS: ACETAMINOPHEN 325MG TABLET PO PRN ×2 (09:44→17:21)
[2017-08-17 11:34] LABS: PLATELET ESTIMATE NORMAL
[2017-08-18] MEDS ORDERED: PANTOPRAZOLE 40MG DR TABLET PO SCH (07:30)
[2017-08-18] MEDS ORDERED: FUROSEMIDE 40MG TABLET PO SCH (09:00)
== END 2017-08-17 23:42 | DRG 871 ==
LOC: ER 16:52 → MICUSO 19:56 → ENRESERV 20:48 → CANRESERV 20:48 → 5EST 08-05 18:47 → 6EST 08-09 18:22 → 5EST 08-10 08:55
PROVIDERS: ADMIT Internal Medicine; ATTEND Internal Medicine
PROC: 30233L1 Transfusion of Nonautologous Fresh Plasma into Peripheral Vein, Percutaneous Approach (ICD-10-PCS; 2017-07-30)
PROC: 30233K1 Transfusion of Nonautologous Frozen Plasma into Peripheral Vein, Percutaneous Approach (ICD-10-PCS; 2017-07-30)
PROC: 02HV33Z Insertion of Infusion Device into Superior Vena Cava, Percutaneous Approach (ICD-10-PCS; 2017-07-31)
PROC: B548ZZA Ultrasonography of Superior Vena Cava, Guidance (ICD-10-PCS; 2017-07-31)
PROC: 5A09457 Assistance with Respiratory Ventilation, 24-96 Consecutive Hours, Continuous Positive Airway Pressure (ICD-10-PCS; 2017-07-31)
PROC: 0W9G3ZZ Drainage of Peritoneal Cavity, Percutaneous Approach (ICD-10-PCS; principal; 2017-08-03)
PROC: 5A09457 Assistance with Respiratory Ventilation, 24-96 Consecutive Hours, Continuous Positive Airway Pressure (ICD-10-PCS; 2017-08-04)
PROC: 5A09357 Assistance with Respiratory Ventilation, Less than 24 Consecutive Hours, Continuous Positive Airway Pressure (ICD-10-PCS; 2017-08-06)
PROC: 5A1D70Z Performance of Urinary Filtration, Intermittent, Less than 6 Hours Per Day (ICD-10-PCS; 2017-08-10)
PROC: 0W9G3ZZ Drainage of Peritoneal Cavity, Percutaneous Approach (ICD-10-PCS; 2017-08-11)
PROC: 5A1D70Z Performance of Urinary Filtration, Intermittent, Less than 6 Hours Per Day (ICD-10-PCS; 2017-08-12)
PROC: 5A1D70Z Performance of Urinary Filtration, Intermittent, Less than 6 Hours Per Day (ICD-10-PCS; 2017-08-14)
PROC: 5A1D70Z Performance of Urinary Filtration, Intermittent, Less than 6 Hours Per Day (ICD-10-PCS; 2017-08-16)
DX: A41.50 Gram-negative sepsis, unspecified (principal); J96.00 Acute respiratory failure, unspecified whether with hypoxia or hypercapnia; G93.41 Metabolic encephalopathy; I50.23 Acute on chronic systolic (congestive) heart failure; E44.0 Moderate protein-calorie malnutrition; R18.8 Other ascites; N17.9 Acute kidney failure, unspecified; D68.9 Coagulation defect, unspecified; N39.0 Urinary tract infection, site not specified; I13.0 Hypertensive heart and chronic kidney disease with heart failure and stage 1 through stage 4 chronic kidney disease, or unspecified chronic kidney disease; M62.82 Rhabdomyolysis; I42.9 Cardiomyopathy, unspecified; N48.89 Other specified disorders of penis; D69.6 Thrombocytopenia, unspecified; E87.5 Hyperkalemia; K74.60 Unspecified cirrhosis of liver; N18.9 Chronic kidney disease, unspecified; D64.9 Anemia, unspecified; B19.20 Unspecified viral hepatitis C without hepatic coma; F14.10 Cocaine abuse, uncomplicated; E03.9 Hypothyroidism, unspecified; E11.22 Type 2 diabetes mellitus with diabetic chronic kidney disease; E11.649 Type 2 diabetes mellitus with hypoglycemia without coma; E83.39 Other disorders of phosphorus metabolism; I25.10 Atherosclerotic heart disease of native coronary artery without angina pectoris; I27.20 Pulmonary hypertension, unspecified; I77.819 Aortic ectasia, unspecified site; Z79.899 Other long term (current) drug therapy; Z86.73 Personal history of transient ischemic attack (TIA), and cerebral infarction without residual deficits; Z68.30 Body mass index [BMI] 30.0-30.9, adult
CPT/HCPCS: 36415; 36430; 36569; 36600; 49083; 70450; 71045; 74176; 76705; 76770; 76937; 80048; 80053; 80061; 80076; 80305; 81001; 82040; 82140; 82248; 82270; 82375; 82533; 82550; 82553; 82805; 82962; 83690; 83735; 83880; 84100; 84132; 84300; 84443; 84484; 85025; 85610; 85730; 86803; 86850; 86900; 86927; 87040; 87070; 87077; 87086; 87186; 87205; 87340; 88108; 88312; 89050; 93005; 93970; 93971; 94640; 94660; 96374; 96375; 96376; 97116; 97162; 97164; 97166; 99291; A6261; C1752; C9113; G0482; J0610; J0696; J1630; J1644; J1815; J1940; J2060; J2270; J2405; J3430; J3490; J7030; J7040; J7050; J7060; J7131; J7611; J7620; P9017